=== PATIENT | female | born 1990 | race American Indian/Alaskan Native ===

== ENCOUNTER 2019-09-04 19:19 | Emergency (ER) | payer OTHER ==
[2019-09-04] MEDS ORDERED: MORPHINE IV ONE ×2 (19:34→20:06)
[2019-09-04] MEDS ORDERED: ZOFRAN IV ONE ×2 (19:34→20:07)
--- NOTE | 2019-09-04 19:42 | Event Note ---
ED Screening Note Date of service: 09/04/19 Time: 19:40 ED Screening Note: Pt complains of right side pain, nausea, dizziness, and SOB x today. Had chest tube removed on Saturday-admitted x 13 days for pneumothorax per pt This initial assessment/diagnostic orders/clinical plan/treatment(s) is/are subject to change based on patients health status, clinical progression and re- assessment by fellow clinical providers in the ED. Further treatment and workup at subsequent clinical providers discretion. Patient/guardian urged not to elope from the ED as their condition may be serious if not clinically assessed and managed. Initial orders include: CBC BMP lactic acid CXR meds
[2019-09-04] MEDS ORDERED: NACL 0.9% 1000 ML IV ONE (19:45)
[2019-09-04] MEDS ORDERED: NACL 0.9% 1000 ML 1,000 ML ONE (19:52)
--- NOTE | 2019-09-04 19:58 | Emergency Department Report ---
ED General Adult HPI - General Chief complaint: Dyspnea/Respdistress Stated complaint: PAIN,AMARILYS Time Seen by Provider: 09/04/19 19:57 Source: patient Mode of arrival: Ambulatory Limitations: No Limitations - History of Present Illness Initial comments: 29 y.o. female with recent history of a pneumothorax with chest tube placement and removal of chest tube yesterday as well as treatment for pneumonia and the flu at [facility] presents with complaint of shortness of breath. Patient states that she has had worsening shortness of breath since 5 this morning. Patient was discharged yesterday from [facility] after having a pneumothorax. Patient was evaluated by Dr. Johnson with Thoracic surgery at that facility who transitioned a pigtail catheter that was initially placed to a chest tube in right chest. Patient states that she was admitted for 2 days. Patient denies any fever. Patient states her pain is a 9 out of 10. Patient states that it hurts to breathe on the right side. Patient denies any recent trauma or falls. - Related Data Allergies Allergy/AdvReac Type Severity Reaction Status Date / Time No Known Allergies Allergy Unverified 09/04/19 19:27 ED Review of Systems ROS: Stated complaint: PAIN,AMARILYS Other details as noted in HPI Constitutional: denies: chills, fever Eyes: denies: eye pain, eye discharge, vision change ENT: denies: ear pain, throat pain Respiratory: cough, SOB at rest Cardiovascular: denies: chest pain, palpitations Endocrine: no symptoms reported Gastrointestinal: denies: abdominal pain, nausea, diarrhea Genitourinary: denies: urgency, dysuria, discharge Musculoskeletal: denies: back pain, joint swelling, arthralgia Skin: denies: rash, lesions Neurological: denies: headache, weakness, paresthesias Psychiatric: denies: anxiety, depression Hematological/Lymphatic: denies: easy bleeding, easy bruising ED Past Medical Hx - Past Medical History Previous Medical History?: Yes Additional medical history: pneumonia, - Surgical History Past Surgical History?: Yes Additional Surgical History: chest tube - Social History Smoking Status: Current Some Day Smoker Substance Use Type: Alcohol ED Physical Exam - General Limitations: No Limitations General appearance: alert, other (uncomfortable; dehydrated) - Head Head exam: Present: atraumatic, normocephalic - Eye Eye exam: Present: normal appearance - ENT ENT exam: Present: mucous membranes moist - Neck Neck exam: Present: normal inspection - Respiratory Respiratory exam: Present: respiratory distress, chest wall tenderness, decr eased breath sounds (on right side) - Cardiovascular Cardiovascular Exam: Present: normal rhythm, tachycardia. Absent: systolic murmur, diastolic murmur, rubs, gallop - GI/Abdominal GI/Abdominal exam: Present: soft, normal bowel sounds - Extremities Exam Extremities exam: Present: normal inspection - Back Exam Back exam: Present: normal inspection - Neurological Exam Neurological exam: Present: alert, oriented X3 - Psychiatric Psychiatric exam: Present: normal affect, normal mood - Skin Skin exam: Present: warm, dry, intact, normal color. Absent: rash ED Course Vital Signs 09/04/19 09/04/19 09/04/19 19:28 19:54 19:55 Temperature 98.8 F Pulse Rate 137 H 129 H 129 H Respiratory 22 23 38 H Rate Blood Pressure 98/53 108/66 O2 Sat by Pulse 96 96 95 Oximetry 09/04/19 09/04/19 09/04/19 20:00 20:05 20:10 Temperature Pulse Rate 125 H 129 H 123 H Respiratory 20 37 H 36 H Rate Blood Pressure 116/57 93/55 113/54 O2 Sat by Pulse 94 96 98 Oximetry 09/04/19 09/04/19 09/04/19 20:15 20:20 20:21 Temperature Pulse Rate 124 H 118 H Respiratory 46 H 45 H 25 H Rate Blood Pressure 105/64 102/66 O2 Sat by Pulse 98 97 98 Oximetry 09/04/19 09/04/19 09/04/19 20:25 20:30 20:35 Temperature Pulse Rate 119 H 113 H 115 H Respiratory 29 H 41 H 31 H Rate Blood Pressure 102/66 109/64 102/72 O2 Sat by Pulse 97 99 98 Oximetry 09/04/19 09/04/19 09/04/19 20:41 20:45 20:50 Temperature Pulse Rate 118 H 120 H 122 H Respiratory 40 H 36 H 35 H Rate Blood Pressure 100/71 100/71 117/46 O2 Sat by Pulse 99 98 97 Oximetry 09/04/19 09/04/19 09/04/19 20:55 21:01 21:05 Temperature Pulse Rate 127 H 126 H 130 H Respiratory 29 H 31 H 22 Rate Blood Pressure 117/46 175/143 175/143 O2 Sat by Pulse 97 67 L 96 Oximetry 09/04/19 09/04/19 09/04/19 21:11 21:15 21:21 Temperature Pulse Rate 128 H 124 H 126 H Respiratory 22 39 H 31 H Rate Blood Pressure 127/47 133/44 124/59 O2 Sat by Pulse 98 100 98 Oximetry 09/04/19 09/04/19 21:25 21:31 Temperature Pulse Rate 124 H 116 H Respiratory 44 H 22 Rate Blood Pressure 124/52 98/40 O2 Sat by Pulse 98 97 Oximetry ED Medical Decision Making - Lab Data Result diagrams: 09/04/19 19:51 09/04/19 19:51 - Medical Decision Making Patient noted to have a loculated pleural effusion encompassing the right long. There is no deviation of the trachea. There is no obvious pneumothorax present. This patient recently was about thoracic surgery at [facility] I contacted this thoracic surgeon who agreed to see the patient at [facility]. Patient's case was discussed with [facility] transfer line as well as the ER physician at that facility. Patient was accepted for transfer. Patient had recently been evaluated by thoracic surgery and as it had not been 24 hours since in her developing this possible empyema we'll go ahead and transfer patient to the hospital for continued management and treatment. Patient was also given Zosyn therapy as she was noted to have an elevated white count. Patient has had no fever however. Patient initially received a total of 8 mg of morphine which somewhat diminished her pain. Patient then received 2 of Dilaudid which helped bring her pain down more significantly. - Differential Diagnosis Pneumothorax; Empyema; Pneumonia; Dehydration Critical Care Time: Yes Critical care time in (mins) excluding proc time.: 38 Critical care attestation.: If time is entered above; I have spent that time in minutes in the direct care of this critically ill patient, excluding procedure time. Critical care time includes time spent on physician consultation, direct bedside care, and frequent reassessment. ED Disposition Clinical Impression: Empyema lung, Acute respiratory disease Disposition: [id number]/TX-70 ANOTHER TYPE HLTHCARE Is pt being admited?: No Does the pt Need Aspirin: No Condition: Fair Referrals: LUCIO PEREYRA MD [Primary Care Provider] - 3-5 Days Time of Disposition: 22:25 Print Language: SLOVENIAN
[2019-09-04 20:03] LABS: Hematocrit 39.6 % (30.3-42.9); Hemoglobin 12.9 gm/dl (10.1-14.3); Mean Corpuscular HGB Conc 33 % (30-34); Mean Corpuscular Volume 88 fl (79-97); Platelet Count 430 K/mm3 (140-440); Red Blood Count 4.51 M/mm3 (3.65-5.03); Red Cell Distribution Width 15.1 % (13.2-15.2)
--- NOTE | 2019-09-04 20:22 | XRay Report ---
CHEST 1 VIEW INDICATION / CLINICAL INFORMATION: MAIN: shortness of breath SOB and generalized pain, pt stated she was D/C from [place] yesterday for Fl u, pneumonia also C/O pain to right side. had chest tube right side. COMPARISON: None available. FINDINGS: SUPPORT DEVICES: None. HEART / MEDIASTINUM: Normal heart size. LUNGS / PLEURA: Patchy and linear airspace opacities throughout the right lung. Moderate to large lef t pleural fluid collection is present, possibly loculated with lateral and subpulmonic components. No evident pneumothorax. Scattered linear opacities are present in the left lung, likely related to ate lectasis and/or scarring. ADDITIONAL FINDINGS: No significant additional findings. IMPRESSION: 1. Moderate to large left pleural fluid collection, likely loculated, with differential including emp yema and hemothorax. 2. Diffuse right lung airspace opacities may reflect any combination of atelectasis, scarring, pneumo shorty, aspirated material, pulmonary hemorrhage. Signer Name: Trevor Nguyen MD Signed: 09/04/2019 8:17 PM Workstation Name: [id number]
[2019-09-04 20:23] LABS: BUN/Creatinine Ratio 22; Blood Urea Nitrogen 11 mg/dL (7-17); Calcium 8.9 mg/dL (8.4-10.2); Hemolysis Index 9
[2019-09-04 20:45] LABS: Band Neutrophils # (Manual) 0.1 K/mm3; Basophils % (Manual) 0 % (0.0-1.8); Eosinophils % (Manual) 0 % (0.0-4.3); Ovalocytes Few; Platelet Estimate Consistent w Auto; Poikilocytosis Few; Total Cells Counted 200
[2019-09-04] MEDS ORDERED: ZOSYN/NS 4.5GM/100ML 4.5 GM/100 ML VIAL IV ONE (20:52)
[2019-09-04 21:00] LABS: Albumin 3.7 g/dL (3.9-5); Bilirubin,Direct 0.3 mg/dL (0-0.2)
[2019-09-04] MEDS ORDERED: DILAUDID IV ONE (21:23)
[2019-09-04 21:38] VITALS: BP 98/40
== END 2019-09-04 21:39 | disposition other institution (70) ==
LOC: ED 19:19
DX: J86.9 Pyothorax without fistula (principal); F17.200 Nicotine dependence, unspecified, uncomplicated
CPT/HCPCS: 36415; 71045; 80048; 80076; 82140; 85007; 85025; 87040; 96365; 96375; 96376; 99291; J1170; J2270; J2405; J2543; J7030